=== PATIENT | female | born 1990 | race American Indian/Alaskan Native ===

== ENCOUNTER 2017-03-30 12:11 | Emergency (ER) | payer MEDICAID ==
[2017-03-30 12:18] VITALS: BP 146/76
[2017-03-30] MEDS ORDERED: TYLENOL PO ONE (13:53)
--- NOTE | 2017-03-30 14:04 | Emergency Department Report ---
ED Lower Extremity HPI - General Chief Complaint: Extremity Injury, Lower Stated Complaint: LEFT BIG TOE Time Seen by Provider: 03/30/17 13:50 Source: patient Mode of arrival: Ambulatory Limitations: No Limitations - History of Present Illness Initial Comments: This is a 26-year-old female nontoxic, well nourished in appearance, no acute signs of distress presents to the ED with c/o of left great toe pain x1 day. Patient stated that she was walking down the stairs and hit her toe. Patient denies any joint swelling, joint redness, chest pain, shortness of breathe, fever, chills, headache, nausea, vomiting. Patient denies numbness or tingling. Patient states allergies to aspirin. Denies PMH. MD Complaint: other (left great toe) -: days(s) (1) Injury: Toes: Left Type of Injury: blunt Place: home Severity: mild Severity scale (0 -10): 8 Improves With: nothing Worsens With: weight bearing Context: direct blow Associated Symptoms: able to partially bear weight, ambulatory. denies: snap/ pop sensation, swelling, numbness, tingling, unable to bear weight - Related Data Previous Rx's Medication Instructions Recorded Last Taken Type Acetaminophen 500 mg PO Q6H PRN #30 tablet 03/30/17 Unknown Rx Allergies Allergy/AdvReac Type Severity Reaction Status Date / Time aspirin Allergy Hives Verified 03/30/17 12:18 ED Review of Systems ROS: Stated complaint: LEFT BIG TOE Other details as noted in HPI Constitutional: denies: chills, fever Eyes: denies: eye pain, eye discharge, vision change ENT: denies: ear pain, throat pain Respiratory: denies: cough, shortness of breath, wheezing Cardiovascular: denies: chest pain, palpitations Endocrine: no symptoms reported Gastrointestinal: denies: abdominal pain, nausea, diarrhea Genitourinary: denies: urgency, dysuria, discharge Musculoskeletal: denies: back pain, joint swelling, arthralgia Skin: denies: rash, lesions Neurological: denies: headache, weakness, paresthesias Psychiatric: denies: anxiety, depression Hematological/Lymphatic: denies: easy bleeding, easy bruising ED Past Medical Hx - Past Medical History Previous Medical History?: No Additional medical history: ovarian cyst - Surgical History Additional Surgical History: breast reduction - Social History Smoking Status: Never Smoker Substance Use Type: None - Medications Home Medications: Home Medications Medication Instructions Recorded Confirmed Last Taken Type Acetaminophen 500 mg PO Q6H PRN #30 tablet 03/30/17 Unknown Rx ED Physical Exam - General Limitations: No Limitations General appearance: alert, in no apparent distress - Head Head exam: Present: atraumatic, normocephalic - Eye Eye exam: Present: normal appearance Pupils: Present: normal accommodation - ENT ENT exam: Present: normal exam, mucous membranes moist - Neck Neck exam: Present: normal inspection - Respiratory Respiratory exam: Present: normal lung sounds bilaterally. Absent: respiratory distress, wheezes, rales, rhonchi, stridor - Cardiovascular Cardiovascular Exam: Present: regular rate, normal rhythm. Absent: systolic murmur, diastolic murmur, rubs, gallop - GI/Abdominal GI/Abdominal exam: Present: soft, normal bowel sounds - Extremities Exam Extremities exam: Present: normal inspection, full ROM, tenderness, normal capillary refill. Absent: pedal edema, joint swelling, calf tenderness - Expanded Lower Extremity Exam Left Hip exam: Present: normal inspection, full ROM Upper Leg exam: Present: normal inspection, full ROM Knee exam: Present: normal inspection, full ROM Lower Leg exam: Present: normal inspection, full ROM Ankle exam: Present: normal inspection, full ROM Foot/Toe exam: Present: normal inspection, full ROM, tenderness. Absent: swelling, abrasion, laceration, ecchymosis, deformity, crepidus, dislocation, erythema, amputation, puncture wound, foreign body, calcaneal tenderness, tenderness at base of 5th metatarsal, nail avulsion, subungual hematoma Neuro vascular tendon exam: Present: no vascular compromise. Absent: pulse deficit, abnormal cap refill, motor deficit, sensory deficit, tendon deficit, extremity cold to touch, pallor, abnormal 2-point discrimination, decreased fine /light touch, foot drop, peroneal nerve deficit, significant pain with passive ROM of distal joint Gait: Positive: observed and limited by pain 1 - pain - Back Exam Back exam: Present: normal inspection - Neurological Exam Neurological exam: Present: alert, oriented X3 - Psychiatric Psychiatric exam: Present: normal affect, normal mood - Skin Skin exam: Present: warm, dry, intact, normal color. Absent: rash ED Course Vital Signs 03/30/17 03/30/17 12:12 14:01 Temperature 98.8 F Pulse Rate 74 Respiratory 20 16 Rate Blood Pressure 146/76 O2 Sat by Pulse 98 Oximetry - Reevaluation(s) Reevaluation #1: 03/30/17 14:05 Patient is speaking in full sentences with no signs of distress noted. ED Lower Extremity MDM - Medical Decision Making This is a 26-year-old female that presents with left great toe strain. Patient is stable and was examined by me. Xray has been obtained and dictated by radiologist within normal limits. Patient is notified of xray results with no questions noted. Patient recevied Tylenol and Ice in the Ed. Patient was instructed to RICE therapy. Patient was instructed to Follow-up with a orthopedic doctor in 3-5 days or if symptoms worsen and continue return to emergency room as soon as possible. At time of discharge, the patient does not seem toxic or ill in appearance. No acute signs of distress noted. Patient agrees to discharge treatment plan of care. No further questions noted by the patient. Critical care attestation.: If time is entered above; I have spent that time in minutes in the direct care of this critically ill patient, excluding procedure time. ED Disposition Clinical Impression: Strain of toe of left foot Qualifiers: Encounter type: initial encounter Qualified Code(s): S96.912A - Strain of unspecified muscle and tendon at ankle and foot level, left foot, initial encounter Disposition: TO HOME OR SELFCARE Is pt being admited?: No Does the pt Need Aspirin: No Condition: Stable Instructions: RICE Therapy (ED), Acetaminophen (By mouth) Additional Instructions: Follow-up with a orthopedic doctor in 3-5 days or if symptoms worsen and continue return to emergency room as soon as possible. Rest, elevate, and ice extremity. Prescriptions: Acetaminophen 500 mg PO Q6H PRN #30 tablet PRN Reason: Cough [facility] [Other] - 3-5 Days SHI KUMAR MD [Staff Physician] - 3-[address] [facility] [place] [Outside] - 3-5 Days [facility] [Outside] - 3-5 Days Forms: Work/School Release Form(ED)
--- NOTE | 2017-03-30 14:38 | XRay Report ---
LEFT FOOT, 3 views: History: Great toe pain. The bony architecture is intact. Bony alignment is normal. No soft tissue abnormalities are seen. The joint spaces appear preserved. IMPRESSION: Normal left foot.
== END 2017-03-30 15:03 | disposition home or self-care (01) ==
LOC: ED 12:11
DX: S96.812A Strain of other specified muscles and tendons at ankle and foot level, left foot, initial encounter (principal); Z88.6 Allergy status to analgesic agent; X50.1XXA Overexertion from prolonged static or awkward postures, initial encounter; Y93.89 Activity, other specified; Y92.89 Other specified places as the place of occurrence of the external cause; Y99.8 Other external cause status
CPT/HCPCS: 99283

== ENCOUNTER 2019-06-03 08:16 | Emergency (ER) | payer MEDICAID, OTHER ==
[2019-06-03 09:37] LABS: Basophils % (Auto) 0.7 % (0.0-1.8); Eosinophils % (Auto) 0.7 % (0.0-4.3); Hematocrit 39.6 % (30.3-42.9); Hemoglobin 13.1 gm/dl (10.1-14.3); Lymphocytes # (Auto) 1.6 K/mm3 (1.2-5.4); Lymphocytes % (Auto) 29.5 % (13.4-35.0); Mean Corpuscular HGB Conc 33 % (30-34); Mean Corpuscular Volume 89 fl (79-97); Monocytes # (Auto) 0.3 K/mm3 (0.0-0.8); Monocytes % (Auto) 5.1 % (0.0-7.3); Platelet Count 357 K/mm3 (140-440); Red Blood Count 4.47 M/mm3 (3.65-5.03); Red Cell Distribution Width 13.6 % (13.2-15.2)
[2019-06-03 11:01] LABS: Bacteria,Urine 1+ /HPF (Negative); Bilirubin,Urine NEG (Negative); Blood,Urine SM (Negative); Color,Urine Yellow (Yellow); Mucus,Urine FEW /HPF; Protein,Urine <15 mg/dL mg/dL (Negative); Urobilinogen,Urine < 2.0 mg/dL (<2.0)
--- NOTE | 2019-06-03 13:28 | Ultrasound Report ---
ULTRASOUND OBSTETRIC INDICATION: 6 weeks with abdominal pain/bleeding. TECHNIQUE: Transabdominal and Transvaginal. COMPARISON: None available. FINDINGS: GESTATIONAL SAC: None seen. YOLK SAC: None seen. EMBRYO/FETUS: None seen. ADNEXA: No significant abnormality. FREE FLUID: None. ADDITIONAL FINDINGS: Multiple uterine fibroids are seen measuring up to 10 cm. IMPRESSION: 1. No sonographic evidence of an intrauterine or ectopic . 2. Multiple uterine fibroids. Signer Name: James Daugherty MD Signed: 06/03/2019 1:24 PM Workstation Name: [id number]
[2019-06-03] MEDS ORDERED: ACETAMINOPHEN 325 MG TAB PO ONE (13:47)
--- NOTE | 2019-06-03 13:52 | Emergency Department Report ---
ED HPI - General Chief complaint: Vaginal Bleeding Stated complaint: 6 WKS CRAMPS/BLEEDING Time Seen by Provider: 06/03/19 10:25 Source: patient Mode of arrival: Ambulatory Limitations: No Limitations - History of Present Illness Initial comments: Patient is a 29-year-old F [place] female with a recent diagnosis of . Patient was estimated to be approximately 6 weeks by dates. Patient states this morning she saw blood on the toilet paper when she wiped. She states there may have been one small clot present as well. She has no crampy lower abdominal pain which is 5 out of 10 in severity. She denies vaginal discharge dysuria nausea vomiting diarrhea cough cold or congestion. Patient states she is very nervous after receiving the blood as she rushed to the [facility] and was then brought to the emergency department once they saw that she was less than 20 weeks. Patient states she does have a great deal of anxiety which she believes is the cause of her elevated blood pressure. She denies any chest pain or shortness of breath at this time. - Related Data Previous Rx's Medication Instructions Recorded Last Taken Type Acetaminophen 500 mg PO Q6H PRN #30 tablet 03/30/17 Unknown Rx Allergies Allergy/AdvReac Type Severity Reaction Status Date / Time aspirin Allergy Hives Verified 03/30/17 12:18 ED Review of Systems ROS: Stated complaint: 6 WKS CRAMPS/BLEEDING Other details as noted in HPI Comment: All other systems reviewed and negative ED Past Medical Hx - Past Medical History Previous Medical History?: Yes Additional medical history: ovarian cyst - Surgical History Past Surgical History?: Yes Additional Surgical History: breast reduction, 2015 - Social History Smoking Status: Never Smoker Substance Use Type: None - Medications Home Medications: Home Medications Medication Instructions Recorded Confirmed Last Taken Type Acetaminophen 500 mg PO Q6H PRN #30 tablet 03/30/17 Unknown Rx ED Physical Exam - General Limitations: No Limitations General appearance: alert, in no apparent distress - Head Head exam: Present: atraumatic, normocephalic - Eye Eye exam: Present: normal appearance, PERRL, EOMI - ENT ENT exam: Present: normal orophraynx, mucous membranes moist - Neck Neck exam: Present: normal inspection - Respiratory Respiratory exam: Present: normal lung sounds bilaterally. Absent: respiratory distress, wheezes, rales, rhonchi - Cardiovascular Cardiovascular Exam: Present: regular rate, normal rhythm, normal heart sounds. Absent: systolic murmur, diastolic murmur, rubs, gallop - GI/Abdominal GI/Abdominal exam: Present: soft, tenderness (Mild suprapubic tenderness), normal bowel sounds. Absent: distended, guarding, rebound, rigid - Extremities Exam Extremities exam: Present: normal inspection - Back Exam Back exam: Present: normal inspection - Neurological Exam Neurological exam: Present: alert, oriented X3 - Psychiatric Psychiatric exam: Present: normal affect, normal mood - Skin Skin exam: Present: warm, dry, intact, normal color. Absent: rash ED Course Vital Signs 06/03/19 06/03/19 06/03/19 08:23 09:23 09:30 Temperature 99.4 F 99.1 F Pulse Rate 129 H 100 H 89 Respiratory 18 13 21 Rate Blood Pressure 190/131 137/92 Blood Pressure 139/100 [Right] O2 Sat by Pulse 97 99 95 Oximetry 06/03/19 06/03/19 06/03/19 09:45 10:00 10:30 Temperature Pulse Rate 98 H 90 103 H Respiratory 24 22 18 Rate Blood Pressure 136/86 135/82 138/102 Blood Pressure [Right] O2 Sat by Pulse 97 96 100 Oximetry 06/03/19 06/03/19 06/03/19 10:45 11:00 11:15 Temperature Pulse Rate 96 H 92 H 96 H Respiratory 17 25 H 19 Rate Blood Pressure 147/89 135/90 135/90 Blood Pressure [Right] O2 Sat by Pulse 98 96 99 Oximetry 06/03/19 06/03/19 06/03/19 11:31 11:45 12:00 Temperature Pulse Rate 91 H 93 H 84 Respiratory 30 H 14 27 H Rate Blood Pressure 117/75 122/80 117/75 Blood Pressure [Right] O2 Sat by Pulse 93 98 98 Oximetry 06/03/19 06/03/19 06/03/19 12:49 13:00 13:15 Temperature Pulse Rate 100 H 95 H 82 Respiratory 24 24 25 H Rate Blood Pressure 117/75 124/78 135/80 Blood Pressure [Right] O2 Sat by Pulse 98 96 93 Oximetry ED Medical Decision Making - Lab Data Result diagrams: 06/03/19 08:58 Lab Results 06/03/19 06/03/19 06/03/19 Range/Units 08:58 08:58 08:58 WBC 5.4 (4.5-11.0) K/mm3 RBC 4.47 (3.65-5.03) M/mm3 Hgb 13.1 (10.1-14.3) gm/dl Hct 39.6 (30.3-42.9) % MCV 89 (79-97) fl MCH 29 (28-32) pg MCHC 33 (30-34) % RDW 13.6 (13.2-15.2) % Plt Count 357 (140-440) K/mm3 Lymph % (Auto) 29.5 (13.4-35.0) % [place] % (Auto) 5.1 (0.0-7.3) % Eos % (Auto) 0.7 (0.0-4.3) % Baso % (Auto) 0.7 (0.0-1.8) % Lymph # 1.6 (1.2-5.4) K/mm3 [place] # 0.3 (0.0-0.8) K/mm3 Eos # 0.0 (0.0-0.4) K/mm3 Baso # 0.0 (0.0-0.1) K/mm3 Seg Neutrophils % 64.0 (40.0-70.0) % Seg Neutrophils # 3.4 (1.8-7.7) K/mm3 HCG, Quant 8449 H (0-4) mIU/mL Urine Color (Yellow) Urine Turbidity (Clear) Urine pH (5.0-7.0) Ur Specific [place] (1.003-1.030) Urine Protein (Negative) mg/dL Urine Glucose (UA) (Negative) mg/dL Urine Ketones (Negative) mg/dL Urine Blood (Negative) Urine Nitrite (Negative) Urine Bilirubin (Negative) Urine Urobilinogen (<2.0) mg/dL Ur Leukocyte Esterase (Negative) Urine WBC (Auto) (0.0-6.0) /HPF Urine RBC (Auto) (0.0-6.0) /HPF U Epithel Cells (Auto) (0-13.0) /HPF Urine Bacteria (Auto) (Negative) /HPF Urine Mucus /HPF Blood Type O POSITIVE 06/03/19 Range/Units 10:40 WBC (4.5-11.0) K/mm3 RBC (3.65-5.03) M/mm3 Hgb (10.1-14.3) gm/dl Hct (30.3-42.9) % MCV (79-97) fl MCH (28-32) pg MCHC (30-34) % RDW (13.2-15.2) % Plt Count (140-440) K/mm3 Lymph % (Auto) (13.4-35.0) % [place] % (Auto) (0.0-7.3) % Eos % (Auto) (0.0-4.3) % Baso % (Auto) (0.0-1.8) % Lymph # (1.2-5.4) K/mm3 [place] # (0.0-0.8) K/mm3 Eos # (0.0-0.4) K/mm3 Baso # (0.0-0.1) K/mm3 Seg Neutrophils % (40.0-70.0) % Seg Neutrophils # (1.8-7.7) K/mm3 HCG, Quant (0-4) mIU/mL Urine Color Yellow (Yellow) Urine Turbidity Clear (Clear) Urine pH 5.0 (5.0-7.0) Ur Specific [place] 1.019 (1.003-1.030) Urine Protein <15 mg/dl (Negative) mg/dL Urine Glucose (UA) Neg (Negative) mg/dL Urine Ketones Neg (Negative) mg/dL Urine Blood Sm (Negative) Urine Nitrite Neg (Negative) Urine Bilirubin Neg (Negative) Urine Urobilinogen < 2.0 (<2.0) mg/dL Ur Leukocyte Esterase Neg (Negative) Urine WBC (Auto) 2.0 (0.0-6.0) /HPF Urine RBC (Auto) 3.0 (0.0-6.0) /HPF U Epithel Cells (Auto) 3.0 (0-13.0) /HPF Urine Bacteria (Auto) 1+ (Negative) /HPF Urine Mucus Few /HPF Blood Type On 05/30/2019 the patient states that her personal [employer] had a beta quant which was 2086 - Radiology Data Ordering Physician: TENNILLE OSEGUERA MD Date of Service: 06/03/19 Procedure(s): US OB transvaginal Accession Number(s): [id number] cc: TENNILLE OSEGUERA MD ULTRASOUND OBSTETRIC INDICATION: 6 weeks with abdominal pain/bleeding. TECHNIQUE: Transabdominal and Transvaginal. COMPARISON: None available. FINDINGS: GESTATIONAL SAC: None seen. YOLK SAC: None seen. EMBRYO/FETUS: None seen. ADNEXA: No significant abnormality. FREE FLUID: None. ADDITIONAL FINDINGS: Multiple uterine fibroids are seen measuring up to 10 cm. IMPRESSION: 1. No sonographic evidence of an intrauterine or ectopic . 2. Multiple uterine fibroids. Signer Name: James Daugherty MD Signed: 06/03/2019 1:24 PM Workstation Name: [id number] - Medical Decision Making Patient's beta quant has increased at up predictable rate however no IUP was seen at this time. Patient has several possibilities of the cause of the patient's bleeding. Patient may have some implantation bleeding is not as far long as she believes. Bleeding could be just secondary to fibroids as well. Second possibility the patient has an ectopic and lastly the patient possibly could be miscarrying. Patient in 2 to 3 days is to follow-up with her [employer] for repeat quant. If her quant is increasing she will need another ultrasound to ensure that she is not ectopic . Decreasing beta quant with confirmed miscarriage. Patient is to be discharged home with bedrest. Critical care attestation.: If time is entered above; I have spent that time in minutes in the direct care of this critically ill patient, excluding procedure time. ED Disposition Clinical Impression: Threatened miscarriage, Encounter for assessment for suspected ectopic Disposition: DC-01 TO HOME OR SELFCARE Is pt being admited?: No Does the pt Need Aspirin: No Condition: Stable Instructions: Threatened Miscarriage (ED), Ectopic (ED) Additional Instructions: Your beta quant today was 8450. Please have this repeated in 2 to 3 days. If the number is rising a confirmed that she do have actively growing fetus which will then need to be located on ultrasound. If the number is decreasing it confirms a miscarriage Referrals: PRIMARY CARE, [Primary Care Provider] - 3-5 Days Time of Disposition: 13:55
[2019-06-03 14:06] VITALS: BP 129/80
== END 2019-06-03 14:02 | disposition home or self-care (01) ==
LOC: ED 08:16
DX: O20.0 Threatened abortion (principal); Z3A.01 Less than 8 weeks gestation of pregnancy; Z98.890 Other specified postprocedural states; Z79.899 Other long term (current) drug therapy
CPT/HCPCS: 36415; 76801; 76817; 81001; 84702; 85025; 86900; 86901; 93005

== ENCOUNTER 2019-10-10 21:39 | Outpatient (CLI) | payer OTHER, MEDICAID ==
[2019-10-10 22:36] LABS: Bacteria,Urine 1+ /HPF (Negative); Bilirubin,Urine NEG (Negative); Blood,Urine SM (Negative); Color,Urine Yellow (Yellow); Mucus,Urine FEW /HPF
[2019-10-10] MEDS ORDERED: LACTATED RINGERS 1,000 ML IV ONE (23:15)
[2019-10-10 23:45] VITALS: BP 109/64
== END 2019-10-10 21:40 | disposition home or self-care (01) ==
LOC: TRG 21:39
PROVIDERS: ATTEND Obstetrics & Gynecology
DX: O26.892 Other specified pregnancy related conditions, second trimester (principal); R10.12 Left upper quadrant pain; O47.02 False labor before 37 completed weeks of gestation, second trimester; Z3A.23 23 weeks gestation of pregnancy
CPT/HCPCS: 59025; 81001; 87086; 96365; J0690; J7120; 96360

== ENCOUNTER 2019-10-13 15:05 | Outpatient (CLI) | payer OTHER, MEDICAID ==
[2019-10-13] MEDS ORDERED: LACTATED RINGERS 1,000 ML IV SCH (16:00)
[2019-10-13] MEDS ORDERED: SODIUM CHLORIDE 0.9% 1000 ML 1,000 ML IV ONE (16:17)
[2019-10-13] MEDS ORDERED: MORPHINE 2 MG/1 ML INJ IM ONE ×2 (16:20→16:33)
[2019-10-13 16:22] LABS: Bilirubin,Urine NEG (Negative); Blood,Urine SM (Negative); Color,Urine Yellow (Yellow); Mucus,Urine FEW /HPF; Protein,Urine <15 mg/dL mg/dL (Negative); Urobilinogen,Urine < 2.0 mg/dL (<2.0)
[2019-10-13] MEDS ORDERED: PROMETHAZINE 25 MG TAB PO ONE (17:00)
[2019-10-13 18:09] VITALS: BP 114/55
== END 2019-10-13 19:00 | disposition home or self-care (01) ==
LOC: APU 15:05 → TRG 15:05
PROVIDERS: ATTEND Obstetrics & Gynecology
DX: O26.832 Pregnancy related renal disease, second trimester (principal); N20.0 Calculus of kidney; O34.12 Maternal care for benign tumor of corpus uteri, second trimester; D25.9 Leiomyoma of uterus, unspecified; O47.02 False labor before 37 completed weeks of gestation, second trimester; Z3A.24 24 weeks gestation of pregnancy
CPT/HCPCS: 59025; 81001; 96360; 96372; J2270; J7030; Q0169

== ENCOUNTER 2020-07-30 16:32 | Emergency (ER) | payer OTHER, MEDICAID ==
[2020-07-30 17:23] VITALS: BP 127/103
--- NOTE | 2020-07-30 19:33 | Emergency Department Report ---
- General Chief Complaint: Sore Throat Stated Complaint: SORE THROAT Time Seen by Provider: 07/30/20 17:26 Source: patient Mode of arrival: Ambulatory Limitations: No Limitations - History of Present Illness MD Complaint: sore throat, rhinorrhea, nasal congestion -: Gradual Severity: mild, moderate Quality: aching Consistency: constant Improves With: nothing Associated Symptoms: nasal congestion, sore throat. denies: confusion, right sweats, epistaxis, ear pain - Related Data Previous Rx's Medication Instructions Recorded Last Taken Type Acetaminophen 500 mg PO Q6H PRN #30 tablet 03/30/17 Unknown Rx Amoxicillin/Potassium Clav 1 each PO BID #20 tablet 07/30/20 Unknown Rx [Augmentin 875-125 Tablet] Chlorhexidine Mouthwash [Peridex] 15 ml MM BID #1 bottle 07/30/20 Unknown Rx Lidocaine Viscous 2% 5 ml MM Q3H PRN #120 udc 07/30/20 Unknown Rx Allergies Allergy/AdvReac Type Severity Reaction Status Date / Time aspirin Allergy Hives Verified 03/30/17 12:18 ED Review of Systems ROS: Stated complaint: SORE THROAT Other details as noted in HPI Comment: All other systems reviewed and negative ED Past Medical Hx - Past Medical History Previous Medical History?: Yes Hx Hypertension: No Hx Diabetes: No Hx Deep Vein Thrombosis: No Hx Renal Disease: No Hx Sickle Cell Disease: No Hx Seizures: No Hx Asthma: No Hx HIV: No Additional medical history: ovarian cyst - Surgical History Past Surgical History?: Yes Additional Surgical History: breast reduction, 2014 - Social History Smoking Status: Never Smoker - Medications Home Medications: Home Medications Medication Instructions Recorded Confirmed Last Taken Type Acetaminophen 500 mg PO Q6H PRN #30 tablet 03/30/17 Unknown Rx Amoxicillin/Potassium Clav 1 each PO BID #20 tablet 07/30/20 Unknown Rx [Augmentin 875-125 Tablet] Chlorhexidine Mouthwash [Peridex] 15 ml MM BID #1 bottle 07/30/20 Unknown Rx Lidocaine Viscous 2% 5 ml MM Q3H PRN #120 udc 07/30/20 Unknown Rx ED Physical Exam - General Limitations: No Limitations General appearance: alert, in no apparent distress - Head Head exam: Present: atraumatic, normocephalic - Eye Eye exam: Present: normal appearance - ENT ENT exam: Present: mucous membranes moist, other (Pharynx is red with some swelling. No exudate. Tongue and uvula are midline. Nasal congestion is clear) - Neck Neck exam: Present: normal inspection - Respiratory Respiratory exam: Present: normal lung sounds bilaterally. Absent: respiratory distress - Cardiovascular Cardiovascular Exam: Present: regular rate, normal rhythm. Absent: systolic murmur, diastolic murmur, rubs, gallop - GI/Abdominal GI/Abdominal exam: Present: soft, normal bowel sounds - Extremities Exam Extremities exam: Present: normal inspection - Back Exam Back exam: Present: normal inspection - Neurological Exam Neurological exam: Present: alert, oriented X3 - Psychiatric Psychiatric exam: Present: normal affect, normal mood - Skin Skin exam: Present: warm, dry, intact, normal color. Absent: rash ED Course Vital Signs 07/30/20 17:19 Temperature 98.1 F Pulse Rate 81 Respiratory 18 Rate Blood Pressure 127/103 [Right] O2 Sat by Pulse 99 Oximetry ED Medical Decision Making - Medical Decision Making 30-year-old female with no history of any compromised nontoxic appearance patient is euvolemic with no trismus no airway compromise unable to tolerate p.o. given history and examination low suspicion for this presentation being caused by peritonsillar abscess, Jose, bacterial tracheitis, acute HIV, epiglottitis, retropharyngeal abscess. Critical care attestation.: If time is entered above; I have spent that time in minutes in the direct care of this critically ill patient, excluding procedure time. ED Disposition Clinical Impression: Pharyngitis Disposition: DC-01 TO HOME OR SELFCARE Is pt being admited?: No Does the pt Need Aspirin: No Condition: Stable Instructions: Pharyngitis, Sore Throat Prescriptions: Amoxicillin/Potassium Clav [Augmentin 875-125 Tablet] 1 each PO BID #20 tablet Lidocaine Viscous 2% 5 ml MM Q3H PRN #120 udc PRN Reason: Pain, Moderate (4-6) Chlorhexidine Mouthwash [Peridex] 15 ml MM BID #1 bottle Referrals: [facility] [Provider Group] - 3-5 Days
== END 2020-07-30 18:00 | disposition home or self-care (01) ==
LOC: ED 16:32
DX: J02.9 Acute pharyngitis, unspecified (principal); Z98.890 Other specified postprocedural states; Z88.6 Allergy status to analgesic agent; Z79.899 Other long term (current) drug therapy
CPT/HCPCS: 99282

== ENCOUNTER 2020-10-02 08:12 | Emergency (ER) | payer OTHER, MEDICAID ==
[2020-10-02 08:31] VITALS: BP 148/93
[2020-10-02] MEDS ORDERED: ASPIRIN 325 MG TAB ONE (09:08)
--- NOTE | 2020-10-02 10:31 | Emergency Department Report ---
- General Chief Complaint: Upper Respiratory Infection Stated Complaint: SORE THROAT/RUNNY NOSE x2DAYS Time Seen by Provider: 10/02/20 10:18 Source: patient Mode of arrival: Ambulatory Limitations: No Limitations - History of Present Illness Initial Comments: Patient presents for URI symptoms that began 2 days ago. She has associated rhinorrhea, congestion, sneezing, sore throat, dry cough. She denies any fever, shortness of breath, abdominal pain, vomiting, chest pain. She has not received the COVID-19 vaccine. She states that her daughter was recently sick with RSV and bronchitis. No past medical history. Allergy to aspirin. - Related Data Previous Rx's Medication Instructions Recorded Last Taken Type Acetaminophen 500 mg PO Q6H PRN #30 tablet 03/30/17 Unknown Rx Amoxicillin/Potassium Clav 1 each PO BID #20 tablet 07/30/20 Unknown Rx [Augmentin 875-125 Tablet] Chlorhexidine Mouthwash [Peridex] 15 ml MM BID #1 bottle 07/30/20 Unknown Rx Lidocaine Viscous 2% 5 ml MM Q3H PRN #120 udc 07/30/20 Unknown Rx Allergies Allergy/AdvReac Type Severity Reaction Status Date / Time aspirin Allergy Hives Verified 10/02/20 08:25 ED Review of Systems ROS: Stated complaint: SORE THROAT/RUNNY NOSE x2DAYS Other details as noted in HPI Comment: All other systems reviewed and negative ED Past Medical Hx - Past Medical History Hx Hypertension: No Hx Diabetes: No Hx Deep Vein Thrombosis: No Hx Renal Disease: No Hx Sickle Cell Disease: No Hx Seizures: No Hx Asthma: No Hx HIV: No Additional medical history: ovarian cyst - Surgical History Additional Surgical History: breast reduction, 2014 - Social History Smoking Status: Never Smoker Substance Use Type: Marijuana - Medications Home Medications: Home Medications Medication Instructions Recorded Confirmed Last Taken Type Acetaminophen 500 mg PO Q6H PRN #30 tablet 03/30/17 Unknown Rx Amoxicillin/Potassium Clav 1 each PO BID #20 tablet 07/30/20 Unknown Rx [Augmentin 875-125 Tablet] Chlorhexidine Mouthwash [Peridex] 15 ml MM BID #1 bottle 07/30/20 Unknown Rx Lidocaine Viscous 2% 5 ml MM Q3H PRN #120 udc 07/30/20 Unknown Rx ED Physical Exam - General Limitations: No Limitations General appearance: alert, in no apparent distress - Head Head exam: Present: atraumatic, normocephalic - Eye Eye exam: Present: normal appearance - ENT ENT exam: Present: normal orophraynx, mucous membranes moist, TM's normal b ilaterally, normal external ear exam, other (clear rhinorrhea bilaterally) - Respiratory Respiratory exam: Present: normal lung sounds bilaterally. Absent: respiratory distress, wheezes, rales, rhonchi, stridor, chest wall tenderness, accessory muscle use, decreased breath sounds, prolonged expiratory - Cardiovascular Cardiovascular Exam: Present: regular rate, normal rhythm, normal heart sounds. Absent: systolic murmur, diastolic murmur, rubs, gallop - Neurological Exam Neurological exam: Present: alert, oriented X3 - Psychiatric Psychiatric exam: Present: normal affect, normal mood - Skin Skin exam: Present: warm, dry, intact ED Course Vital Signs 10/02/20 10/02/20 08:29 08:30 Temperature 98.9 F Pulse Rate 90 Respiratory 18 Rate Blood Pressure 148/93 O2 Sat by Pulse 99 Oximetry ED Medical Decision Making - Medical Decision Making Patient presents for URI symptoms that began 2 days ago. She has associated rhinorrhea, congestion, sneezing, sore throat, dry cough. She denies any fever, shortness of breath, abdominal pain, vomiting, chest pain. She has not re ceived the COVID-19 vaccine. She states that her daughter was recently sick with RSV and bronchitis. No past medical history. Allergy to aspirin. Vitals are stable. No hypoxia, no fever, no tachycardia. On exam patient has clear rhinorrhea, breath sounds are clear bilaterally, no wheezing, no rales, no rhonchi, patient has good air movement. Symptoms likely related to URI. Given that patient is presenting during COVID-19 pandemic, discussed the possibility of COVID-19 with patient, discussed return precautions, discussed outpatient testing, discussed self quarantine. Advised patient Please increase your fluid intake over the next several days. May take Tylenol as needed for fever or body aches. May take xdom-ojy-habqnoi cold symptom relief medication such as Mucinex or TheraFlu. Follow-up with a primary care doctor for reexamination. Return to emergency room immediately for any new or worsening symptoms including but not limited to difficulty breathing, shortness of breath, severe chest pain, unable to tolerate by mouth intake, etc. recommend for you to get outpatient COVID-19 testing and to self quarantine if positive. Critical care attestation.: If time is entered above; I have spent that time in minutes in the direct care of this critically ill patient, excluding procedure time. ED Disposition Clinical Impression: URI (upper respiratory infection) Qualifiers: URI type: unspecified URI Qualified Code(s): J06.9 - Acute upper respiratory infection, unspecified Disposition: HOME / SELF CARE / HOMELESS Is pt being admited?: No Does the pt Need Aspirin: No Condition: Stable Instructions: Viral Respiratory Infection Additional Instructions: Please increase your fluid intake over the next several days. May take Tylenol as needed for fever or body aches. May take gmdd-zou-nrnwoft cold symptom relief medication such as Mucinex or TheraFlu. Follow-up with a primary care doctor for reexamination. Return to emergency room immediately for any new or worsening symptoms including but not limited to difficulty breathing, shortness of breath, severe chest pain, unable to tolerate by mouth intake, etc. recommend for you to get outpatient COVID-19 testing and to self quarantine if positive. Referrals: MICHAEL HITCHCOCK MD [Staff Physician] - 2-3 Days [facility] [Provider Group] - 2-3 Days Forms: Work/School Release Form(ED) Time of Disposition: 10:30 Print Language: HAITIAN
== END 2020-10-02 10:49 | disposition home or self-care (01) ==
LOC: ED 08:12
DX: J06.9 Acute upper respiratory infection, unspecified (principal); Z88.6 Allergy status to analgesic agent; J02.9 Acute pharyngitis, unspecified
CPT/HCPCS: 99282

== ENCOUNTER 2020-10-05 09:25 | Emergency (ER) | payer OTHER, MEDICAID ==
[2020-10-05 12:14] VITALS: BP 164/110
--- NOTE | 2020-10-05 13:28 | Emergency Department Report ---
ED General Adult HPI - General Chief complaint: Sore Throat Stated complaint: sore throat Time Seen by Provider: 10/05/20 13:01 Source: patient Mode of arrival: Ambulatory Limitations: No Limitations - History of Present Illness Initial comments: 30-year-old female patient presents to the emergency department with complaints of sore throat for 5 days. Patient states she was evaluated in the emergency department a few days ago and diagnosed with viral pharyngitis. Today, she noticed "white bumps" in the back of her throat, and her employer encouraged her to return to the emergency department for repeat evaluation. Patient has been taking TheraFlu with limited relief. Associated symptoms include cough and congestion. Denies fever, chills, dysphagia, shortness of breath, hoarseness, vomiting, headache, neck stiffness. Denies all other complaints at this time. - Related Data Previous Rx's Medication Instructions Recorded Last Taken Type Acetaminophen 500 mg PO Q6H PRN #30 tablet 03/30/17 Unknown Rx Amoxicillin/Potassium Clav 1 each PO BID #20 tablet 07/30/20 Unknown Rx [Augmentin 875-125 Tablet] Chlorhexidine Mouthwash [Peridex] 15 ml MM BID #1 bottle 07/30/20 Unknown Rx Lidocaine Viscous 2% 5 ml MM Q3H PRN #120 udc 07/30/20 Unknown Rx Nystas/Diphen/Xyl Visc/Mylanta 30 ml MM Q4H PRN #1 bottle 10/05/20 Unknown Rx [Magic Mouthwash] Penicillin Vk [Veetids TAB] 500 mg PO BID 10 Days tablet 10/05/20 Unknown Rx Allergies Allergy/AdvReac Type Severity Reaction Status Date / Time aspirin Allergy Hives Verified 10/02/20 08:25 ED Review of Systems ROS: Stated complaint: STREP THROAT Other details as noted in HPI Other: GENERAL: Negative for fever, chills, weight change, anorexia, fatigue. ENT: Positive for sore throat and nasal congestion. CARDIOVASCULAR: Negative for chest pain, palpitations, lower extremity swelling. PULMONARY: Positive for cough. GASTROINTESTINAL: Negative for abdominal pain, nausea, vomiting, diarrhea, constipation. MUSCULOSKELETAL: Negative for joint pain, joint swelling, myalgias, back pain, neck pain. NEUROLOGICAL: Negative for headache, seizure, syncope, paresthesias, weakness. INTEGUMENTARY: Negative for erythema, rash, diaphoresis, laceration, ecchymosis. HEMATOLOGICAL: Negative for hemoptysis, hematemesis, hematochezia, hematuria. PSYCHIATRIC: Negative for hallucinations, suicidal ideation, homicidal ideation, anxiety, depression. ED Past Medical Hx - Past Medical History Previous Medical History?: No Hx Hypertension: No Hx Diabetes: No Hx Deep Vein Thrombosis: No Hx Renal Disease: No Hx Sickle Cell Disease: No Hx Seizures: No Hx Asthma: No Hx HIV: No Additional medical history: ovarian cyst - Surgical History Past Surgical History?: Yes Additional Surgical History: breast reduction, 2014 - Social History Smoking Status: Never Smoker Substance Use Type: Marijuana - Medications Home Medications: Home Medications Medication Instructions Recorded Confirmed Last Taken Type Acetaminophen 500 mg PO Q6H PRN #30 tablet 03/30/17 Unknown Rx Amoxicillin/Potassium Clav 1 each PO BID #20 tablet 07/30/20 Unknown Rx [Augmentin 875-125 Tablet] Chlorhexidine Mouthwash [Peridex] 15 ml MM BID #1 bottle 07/30/20 Unknown Rx Lidocaine Viscous 2% 5 ml MM Q3H PRN #120 udc 07/30/20 Unknown Rx Nystas/Diphen/Xyl Visc/Mylanta 30 ml MM Q4H PRN #1 bottle 10/05/20 Unknown Rx [Magic Mouthwash] Penicillin Vk [Veetids TAB] 500 mg PO BID 10 Days tablet 10/05/20 Unknown Rx ED Physical Exam - General Limitations: No Limitations - Other Other exam information: General: Awake and alert. No acute distress. Head: Atraumatic, normocephalic. Eyes: EOMI. Pupils are equal and round. Normal sclera and conjunctiva. ENT: Oral mucosa is moist. Nasal congestion noted. There is pharyngeal erythema with trace exudate on the surface of the right tonsil. Uvula is midline and nonedematous. No trismus. Neck: Supple. No lymphadenopathy. Pulmonary: No respiratory distress. Clear to auscultation bilaterally. Cardiac: Regular rate and rhythm. Pulses are palpable and equal bilaterally. No lower extremity cyanosis or edema. Skin: Warm and dry. No rashes. Abdomen: Soft, non-tender, non-protuberant. No guarding, rigidity, or rebound. Bowel sounds are normal. No organomegaly or masses noted. Back: Normal alignment. No CVA tenderness. Extremities: Symmetrical. Full range of motion intact. Neurological: Alert and oriented, appropriately interactive, no focal deficits. Psych: Cooperative. Appropriate mood and affect. Speech is evenly metered. Thoughts are logically construed. ED Course Vital Signs 10/05/20 12:13 Temperature 99.0 F Pulse Rate 82 Respiratory 18 Rate Blood Pressure 164/110 [Right] O2 Sat by Pulse 99 Oximetry ED Medical Decision Making - Medical Decision Making Differential diagnosis including but not limited to: strep pharyngitis, viral pharyngitis, peritonsillar abscess, epiglottitis, Jose's angina, mononucleosis, otitis media, allergic rhinitis On reevaluation, patient remains stable. No hypoxia, no respiratory distress. Rapid strep test is positive. No clinical evidence to suggest peritonsillar abscess or airway obstruction warranting further diagnostic work-up and/or administration of IV medications on an emergent basis at this time. Patient will be discharged home with prescription for oral antibiotics as well as appropriate symptomatic treatment and referred to primary care provider for close outpatient follow-up. Patient expressed understanding and is agreeable to plan of care. Disease transmission precautions discussed. Strict return precautions provided. Repeat exam is unremarkable and benign. History, exam, diagnostic testing, and current condition do not suggest worrisome pathology to warrant further testing, continued ED treatment, admission, or surgical evaluation at this point. Given the low probability of a significant medical illness, it would be more likely to result in harm than benefit to perform further testing at this stage. Discussed findings, presumptive diagnosis, need for follow-up and specific signs/symptoms that should prompt immediate return to the emergency department. Instructions were explained in detail to the patient in addition to giving written discharge information. Patient expressed understanding and was given the opportunity to ask questions, all of which were satisfactorily answered prior to discharge home. Critical care attestation.: If time is entered above; I have spent that time in minutes in the direct care of this critically ill patient, excluding procedure time. ED Disposition Clinical Impression: Strep pharyngitis Disposition: 01 HOME / SELF CARE / HOMELESS Is pt being admited?: No Condition: Stable Instructions: Pharyngitis, [id number] Additional Instructions: Your rapid strep test was positive. Take Tylenol every 4 hours as needed for pain. Take Penicillin with food as directed. Increase your dietary intake of probiotic rich foods while taking this medication. Use Magic Mouthwash as needed for pain. Use salt water gargles and Cepacol lozenges as needed for sore throat. Rest. Drink plenty of fluids. Wash hands frequently to prevent disease transmission. Do not share food or drinks with others. Follow-up with primary care provider this week. Call Wednesday to schedule an a ppointment. See referral information below. Return to the emergency department immediately for new or worsening symptoms. Specifically, return to the emergency department immediately for fever, diffi culty breathing, inability to swallow, worsening pain, rash, or any other concerns. Prescriptions: Nystas/Diphen/Xyl Visc/Mylanta [Magic Mouthwash] 30 ml MM Q4H PRN #1 bottle PRN Reason: Sore Throat Penicillin Vk [Veetids TAB] 500 mg PO BID 10 Days tablet Referrals: MICHAEL HITCHCOCK MD [Staff Physician] - 3-5 Days [facility] [Provider Group] - 3-5 Days Forms: Work/School Release Form(ED) Time of Disposition: 14:09
== END 2020-10-05 14:15 | disposition home or self-care (01) ==
LOC: ED 09:25
DX: J02.0 Streptococcal pharyngitis (principal); B95.0 Streptococcus, group A, as the cause of diseases classified elsewhere; F12.90 Cannabis use, unspecified, uncomplicated; Z88.6 Allergy status to analgesic agent; Z79.899 Other long term (current) drug therapy
CPT/HCPCS: 87430; 99283